=== PATIENT | female | born 1960 | race Caucasian/White ===

== ENCOUNTER 2018-04-21 13:27 | Outpatient (CLI) | payer MEDICARE ==
[2015-11-14 14:57] VITALS: BP 128/72
[2018-04-21 13:54] LABS: MEAN CORPUSCULAR HEMOGLOBIN 24.2 pg (28.0-34.0)
[2018-04-21 13:55] LABS: BASOPHILS % 0.3 (0.0-1.5); EOSINOPHILS % 6.5 % (0.0-6.8); MONOCYTES % 7.4 % (0.0-11.0)
[2018-04-21 15:04] LABS: eGFR (Non-African) > 60
== END 2018-04-21 13:30 ==
LOC: LAB 13:27
PROVIDERS: ATTEND Family Medicine
DX: R25.2 Cramp and spasm (principal)
CPT/HCPCS: 36415; 80053; 83735; 85025

== ENCOUNTER 2018-08-13 08:32 | Emergency (ER) | payer MEDICARE ==
[2018-08-13] MEDS ORDERED: IPRATROPIUM/ALBUTEROL SULFATE 3 ML AMPUL.NEB NEB ONE ×2 (08:38→08:48)
--- NOTE | 2018-08-13 08:47 | ED Physician Documentation ---
General Adult - HISTORIAN Historian: patient - HPI Stated Complaint: dyspnea Chief Complaint: General Adult Onset: hours Timing: still present Severity: moderate Further Comments: yes (Pt is a 58 yo female with hx severe COPD on 5 L NC home O2, who comes to ER with c/o dyspnea. Pt denies chest pain. No n/v/diaphoresis. 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 Pt's says pt needs to be on more than 5 L NC at home, but insurance has not approved that. Pt has been on bipap in the past in the hospital only for previous COPD exacerbations. Pt is a smoker.) - ROS CONST: weakness EYES/ENT: none CVS/RESP: shortness of breath. denies: chest pain GI/: none MS/SKIN/LYMPH: none - PAST HX Past History: COPD (severe on 5 L NC home O2), other (anxiety, depression, musc uloskeletal pain) Allergies/Adverse Reactions: Allergies Allergy/AdvReac Type Severity Reaction Status Date / Time codeine AdvReac Hallucinati Verified 08/13/18 09:13 ons - SOCIAL HX Smoking History: cigarettes - FAMILY HX Family History: No - VITAL SIGNS Vital Signs: Vital Signs Temp Pulse Resp BP Pulse Ox 128/72 11/14/15 14:55 - REVIEWED ASSESSMENTS Nursing Assessment Reviewed: Yes Vitals Reviewed: Yes Progress - Progress Progress: Duoneb HFN Pulmicort HFN Solu-medrol 125 mg IV Influenza A & B - neg Rapid Strep - neg Pt improved, then was up to bathroom and SpO2 decreased to 85% and pt became sob again. Albuterol HFN D/w Dr. Browne. Transfer to [facility], Dr. Lozano. - EKG/XRAY/CT EKG: rhythm (sinus tachycardia, UC=[id number]; normal axis; normal KS interval.) XRAY: chest (no acute process) ED Results Lab/Radiology - Orders Orders: ED Orders Category Date Time Status Ipratropium/Albuterol Sulfate [Duoneb] Med 08/13/18 08:38 Discontinued 3 ml NEB .STK-MED ONE General Adult Physical Exam - PHYSICAL EXAM GENERAL APPEARANCE: moderate distress EENT: pharynx normal NECK: normal inspection, supple RESPIRATORY: wheezes CVS: no murmur, tachycardia ABDOMEN: soft, no organomegaly, normal bowel sounds BACK: normal inspection, no CVA tenderness SKIN: warm/dry, normal color EXTREMITIES: non-tender, normal range of motion, no evidence of injury NEURO: oriented X3, motor nml, sensation nml Discharge Clincal Impression: COPD exacerbation, hyponatremia Referrals: Tova Browne MD [Primary Care Provider] - Condition: Stable Disposition: 02 XFER SHT-TRM HOSP Decision to Admit: NO Decision Time: 11:45
[2018-08-13] MEDS ORDERED: BUDESONIDE 0.5MG/2ML AMPUL.NEB NEB ONE (08:50)
[2018-08-13] MEDS ORDERED: methylPREDNISolone SOD SUCC 125 MG/2 ML VIAL IVP ONE (09:05)
[2018-08-13 09:07] LABS: MEAN CORPUSCULAR HEMOGLOBIN 24.1 pg (28.0-34.0)
[2018-08-13 09:08] LABS: BASOPHILS % 0.6 (0.0-1.5); NEUTROPHILS # 9.6 # k/uL (1.4-7.7)
[2018-08-13] MEDS ORDERED: 0.9 % SODIUM CHLORIDE 500 ML IV ONE ×2 (09:20)
[2018-08-13 09:29] LABS: eGFR (Non-African) > 60
[2018-08-13] MEDS ORDERED: 0.9 % SODIUM CHLORIDE 1,000 ML IV ONE (09:57)
[2018-08-13] MEDS ORDERED: ALBUTEROL SULFATE 2.5 MG/3 ML AMPUL.NEB NEB ONE (10:48)
[2018-08-13 11:28] LABS: APPEARANCE,URINE CLEAR (CLEAR); COLOR,URINE YELLOW (YELLOW)
[2018-08-13 11:29] LABS: OCCULT BLOOD,URINE 2+ (NEGATIVE)
[2018-08-13 12:35] VITALS: BP 147/84
--- NOTE | 2018-08-13 14:09 | Diagnostic Imaging Report ---
ANDREA HERRERA [facility] [address] [facility] [address] [place] [address]. [id number] Report Submission Date: Aug 13, 2018 9:14:47 AM BENDER HELPER Patient Study Name: CHRISTINE SANTIAGO Date: Aug 13, 2018 8:52:01 AM BENDER HELPER Modality Type: DX Gender: F Description: CHEST 1VIEW : 58 Institution: [facility] Physician: ANDREA HERRERA Examination: Portable chest History: Evaluate lungs LOW O2 SATS COPD Comparison exam: None available. Findings: Single view of the chest demonstrates a normal cardiac and mediastinal silhouette. Lung base scarring. Lung ballesteros without focal infiltrate. No blunting of the costophrenic margins. Osseous structures are appropriate for age. Impression: No acute appearing pulmonary process. Electronically signed on Aug 13, 2018 9:14:47 AM BENDER HELPER by: George ALEMAN
== END 2018-08-13 12:25 | disposition short-term general hospital (02) ==
LOC: ED 08:32
DX: J44.1 Chronic obstructive pulmonary disease with (acute) exacerbation (principal); E87.1 Hypo-osmolality and hyponatremia; Z72.0 Tobacco use; Z99.81 Dependence on supplemental oxygen
CPT/HCPCS: 36415; 71045; 80053; 81002; 82550; 82553; 83605; 83880; 84484; 85025; 87040; 87070; 87086; 87400; 87880; 93005; 94640; 96374; 99285; J2930; J7030; J7060; J7626; S1016

== ENCOUNTER 2018-09-01 12:17 | Emergency (ER) | payer MEDICARE ==
[2018-09-01] MEDS ORDERED: IPRATROPIUM/ALBUTEROL SULFATE 3 ML AMPUL.NEB NEB ONE ×2 (12:27→13:33)
--- NOTE | 2018-09-01 12:31 | ED Physician Documentation ---
Dyspnea - HISTORIAN Historian: patient - HPI Stated Complaint: shortness of breath Chief Complaint: Dyspnea Additional Information: Patient, with End stage COPD (wears 6 liters oxygen at home), presents to ER with a several day history of shortness of breath and increased confusion. She was seen here on August 13 for similar symptoms and was sent to [place] where she was hospitalized for COPD exacerbation x 3 days. Patient went home and continued her 1 pack per day smoking habit. Onset: days ago (2) Duration: continues in ED Exacerbated By: nothing Associated Symptoms: chest discomfort, heart racing. denies: chills, fever, productive cough Further Comments: no - ROS CONST: no problems EYES/ENT: none GI/: denies: vomiting, nausea NEURO/PSYCH: denies: headache MS/SKIN/LYMPH: none - PAST HX Lung Disease: COPD Cardiac Disease: CHF PE Risk Factors: none Other History: none Allergies/Adverse Reactions: Allergies Allergy/AdvReac Type Severity Reaction Status Date / Time codeine AdvReac Hallucinati Verified 09/01/18 12:40 ons Home Medications: Ambulatory Orders Medication Instructions Recorded amLODIPine BESYLATE [Norvasc] 2 tab PO DAILY 09/01/18 - SOCIAL HX Smoking History: cigarettes, greater than 1 pack/day Alcohol Use: none Drug Use: none - FAMILY HX Family History: none - VITAL SIGNS Vital Signs: Vital Signs Temp Pulse Resp BP Pulse Ox 147/84 08/13/18 12:33 - REVIEWED ASSESSMENTS Nursing Assessment Reviewed: Yes Vitals Reviewed: Yes Progress - Results/Orders Results/Orders: Report Submission Date: Sep 01, 2018 1:09:55 PM INSTITUTIONAL ASSET MANAGER Patient Study Name: CHRISTINE SANTIAGO Date: Sep 01, 2018 12:47:05 PM INSTITUTIONAL ASSET MANAGER Modality Type: DX Gender: F Description: CHEST 1VIEW : 58 Institution: [facility] Physician: RAAD GONZALES Examination: Portable chest History: Evaluate lungs COPD SMOKER SOB Comparison exam: None available. Findings: Single view of the chest demonstrates a normal cardiac and mediastinal silhouette. Mild haziness at the right lung base. No blunting of the costophrenic margins. Acromioclavicular joint degenerative changes. Impression: Mild right lung base infiltrate. No effusion. Electronically signed on Sep 01, 2018 1:09:55 PM INSTITUTIONAL ASSET MANAGER by: George Bush - Progress Progress: 1320 ABG pH 7.40, pCO2 63, pO2 92 on 10 liters oxygen. Patient needs Bipap or home vent 1345 apparently, in discussion with Oneil', patient has bipap at home but will not use it. 1400 After multiple calls there are no beds available at [facility], or [place]. 1430 Had discussion with patient about admission to [facility], if she wanted to be admitted she would have to change code status. I was met with much agitation. 1500 [facility] have no beds available 1505 [facility] do not have a step down 1508 [facility] No answer. 1511 [facility] [phone] Left message. 1524 [facility] transfer team will accept patient for admission. Discussed with Dr. Horace Melton ED Results Lab/Radiology - Radiology Radiology Impressions: Report Submission Date: Sep 01, 2018 1:09:55 PM INSTITUTIONAL ASSET MANAGER Patient Study Name: CHRISTINE SANTIAGO Date: Sep 01, 2018 12:47:05 PM INSTITUTIONAL ASSET MANAGER Modality Type: DX Gender: F Description: CHEST 1VIEW : 58 Institution: [facility] Physician: RAAD GONZALES Examination: Portable chest History: Evaluate lungs COPD SMOKER SOB Comparison exam: None available. Findings: Single view of the chest demonstrates a normal cardiac and mediastinal silhouette. Mild haziness at the right lung base. No blunting of the costophrenic margins. Acromioclavicular joint degenerative changes. Impression: Mild right lung base infiltrate. No effusion. Electronically signed on Sep 01, 2018 1:09:55 PM INSTITUTIONAL ASSET MANAGER by: George Bush - Orders Orders: ED Orders Category Date Time Status Place IV Lock 1T Care 09/01/18 12:26 Ordered CHEST 1VIEW [RAD] Stat Exams 09/01/18 Ordered ABG WITH COOX Stat Lab 09/01/18 Ordered BNP [NT-proBNP] Stat Lab 09/01/18 Ordered CBC/PLATELET/DIFF Routine Lab 09/01/18 Ordered CMP Routine Lab 09/01/18 Ordered TROPONIN I (cTnI) Stat Lab 09/01/18 Ordered Ipratropium/Albuterol Sulfate [Duoneb] Med 09/01/18 12:27 Once 3 ml NEB NOW ONE EKG WITH COMPARISON Stat Ther 09/01/18 Ordered Dyspnea Physical Exam - EXAM General Appearance: moderate distress EENT: ERNA Neck: nml inspection Respiratory: respiratory distress (in tripod position), accessory muscle use, other (diffuse wheezing bilaterally) CVS: reg. rate & rhythm Abdomen: non-tender Extremities: non-tender, no edema Neuro/Psych: disoriented Discharge Clincal Impression: Medical non-compliance, Smoking addiction Acute on chronic respiratory failure Qualifiers: Respiratory failure complication: hypoxia and hypercapnia Qualified Code(s): J96.21 - Acute and chronic respiratory failure with hypoxia Right lower lobe pneumonia Qualifiers: Pneumonia type: due to other aerobic Gram-negative bacteria Qualified Code(s): J15.6 - Pneumonia due to other Gram-negative bacteria Clincal Impression: (Ruled Out): Acute and chronic respiratory failure with hypercapnia Referrals: Tova Browne MD [Primary Care Provider] - 2 Days Condition: Fair Disposition: 09 ADMITTED INPATIENT Decision to Admit: [id number] Date of Decison to Admit: 09/01/18 Decision Time: 15:30
[2018-09-01 12:33] LABS: BASOPHILS % 0.4 (0.0-1.5); EOSINOPHILS % 1.1 % (0.0-6.8); MEAN CORPUSCULAR HEMOGLOBIN 23.1 pg (28.0-34.0); MONOCYTES % 6.9 % (0.0-11.0); NEUTROPHILS # 8.3 # k/uL (1.4-7.7)
[2018-09-01] MEDS ORDERED: methylPREDNISolone SOD SUCC 125 MG/2 ML VIAL IVP ONE (13:18)
[2018-09-01] MEDS ORDERED: cefTRIAXone SODIUM 1 GM/50 ML INJ IV ONE (13:25)
[2018-09-01] MEDS ORDERED: VANCOMYCIN HCL 1.25 GM in 0.9 % SODIUM CHLORIDE 500 ML IV ONE (13:25)
[2018-09-01 13:27] LABS: eGFR (Non-African) > 60
[2018-09-01 13:36] LABS: ABG BASE EXCESS 11.5 (-2 - +2); ABG PH 7.4 (7.35-7.45)
--- NOTE | 2018-09-01 13:38 | Diagnostic Imaging Report ---
RAAD GONZALES [facility] [address] [facility] [address] [place], [place]. [address] Report Submission Date: Sep 01, 2018 1:09:55 PM FACTORY ASSEMBLER Patient Study Name: CHRISTINE SANTIAGO Date: Sep 01, 2018 12:47:05 PM FACTORY ASSEMBLER Modality Type: DX Gender: F Description: CHEST 1VIEW : 58 Institution: [facility] Physician: RAAD GONZALES Examination: Portable chest History: Evaluate lungs COPD SMOKER SOB Comparison exam: None available. Findings: Single view of the chest demonstrates a normal cardiac and mediastinal silhouette. Mild haziness at the right lung base. No blunting of the costophrenic margins. Acromioclavicular joint degenerative changes. Impression: Mild right lung base infiltrate. No effusion. Electronically signed on Sep 01, 2018 1:09:55 PM FACTORY ASSEMBLER by: George ALEMAN
[2018-09-01] MEDS ORDERED: cefTRIAXone SODIUM 1 GM INJ ONE (15:26)
[2018-09-01] MEDS ORDERED: 0.9 % SODIUM CHLORIDE 50 ML IV ONE (15:26)
[2018-09-01 18:34] VITALS: BP 143/71
== END 2018-09-01 16:54 | disposition other institution (70) ==
LOC: ED 12:17
DX: J96.21 Acute and chronic respiratory failure with hypoxia (principal); J18.1 Lobar pneumonia, unspecified organism; F17.210 Nicotine dependence, cigarettes, uncomplicated; Z91.14 Patient's other noncompliance with medication regimen
CPT/HCPCS: 36415; 36600; 71045; 80053; 82803; 83880; 84484; 85025; 94640; 96365; 96375; 99285; J0696; J2930; J3370; J7060; S1016

== ENCOUNTER 2018-11-24 12:54 | Emergency (ER) | payer MEDICARE, OTHER ==
[2018-11-24] MEDS: IPRATROPIUM/ALBUTEROL SULFATE 3 ML AMPUL.NEB NEB ONE ×2 (13:00→14:21)
[2018-11-24 13:16] LABS: BASOPHILS % 0.5 % (0.0-1.5); EOSINOPHILS % 1.2 % (0.0-6.8); MEAN CORPUSCULAR HEMOGLOBIN 24.2 pg (28.0-34.0); MONOCYTES % 8.2 % (0.0-11.0); NEUTROPHILS # 13.1 # k/uL (1.4-7.7)
[2018-11-24] MEDS: methylPREDNISolone SOD SUCC 125 MG/2 ML VIAL IVP ONE (13:25)
[2018-11-24 13:29] LABS: eGFR (Non-African) > 60
--- NOTE | 2018-11-24 13:30 | ED Physician Documentation ---
Dyspnea - HISTORIAN Historian: child (2 sons and a daughter) - HPI Chief Complaint: Dyspnea Additional Information: Patient is a 58-year-old female who presents to the ER via POV with children. Patient was found by son this afternoon short of breath and lethargic. He states that she was fine yesterday- continues to smoke- will not wear her BiPap- and has been out of nebulizer meds for a couple of days. Upon arrival patient is extremely dyspneic, diaphoretic, and tacycardic. Oxygen sat was 70%. Patient was just discharged from the [place] on 11/18/18. She was admitted on 11/08/18 and intubated. Onset: hours Duration: continues in ED Initiating Event: upper respiratory illness (pt was released from [facility] on 11/18) Severity: severe Exacerbated By: change in position, exertion, laying flat Associated Symptoms: sweating - ROS CONST: [facility] weakness EYES/ENT: none GI/: none NEURO/PSYCH: denies: headache MS/SKIN/LYMPH: none - PAST HX Lung Disease: COPD, other (chronic hypoxic hypercapnic resp. failure) Cardiac Disease: A-Fib PE Risk Factors: hypertension Surgeries/Procedures: prior intubation (11/10/18) Immunizations: UTD Allergies/Adverse Reactions: Allergies Allergy/AdvReac Type Severity Reaction Status Date / Time codeine AdvReac Hallucinati Verified 11/24/18 13:29 ons Home Medications: Ambulatory Orders Medication Instructions Recorded amLODIPine BESYLATE [Norvasc] 2 tab PO DAILY 09/01/18 - SOCIAL HX Smoking History: less than 1 pack/day Alcohol Use: none Drug Use: none - FAMILY HX Family History: none - VITAL SIGNS Vital Signs: Vital Signs Temp Pulse Resp BP Pulse Ox 84 143/71 72 L 11/24/18 13:11 09/01/18 16:54 11/24/18 13:11 - REVIEWED ASSESSMENTS Nursing Assessment Reviewed: Yes Vitals Reviewed: Yes Progress - Progress Progress: 13:45 Patient responding better- family state she looks better- she is able to give short answers now- skin is now dry. Patient down to 2 L NC 14:02 Spoke with Vernon MOLINA at [facility]- report given- will call back for possible acceptance 14:10 Spoke with family and gave an update- pt short of breath due to trying to visit with family- will give another Duoneb treatment- explained to family to let patient conserve resp. status. 14:18 Vernon RN called back patient will go to stepdown at [facility] under Dr. Montilla/ family updated on status 14:35 Patient alert and oriented- talking with family - EKG/XRAY/CT EKG: rhythm (ST rate of 95) ED Results Lab/Radiology - Lab Results Lab Results: Lab Results 11/24/18 13:11 WBC 16.70 K/ul H K/ul (4.00-12.00) RBC 3.77 M/ul L M/ul (3.90-5.20) Hgb 9.1 g/dL L g/dL (11.5-16.0) Hct 28.6 % L % (34.5-46.5) MCV 76.0 fl L fl (80.0-100.0) MCH 24.2 pg L pg (28.0-34.0) MCHC 31.9 g/dL g/dL (30.0-36.0) RDW 17.0 % H % (11.3-14.3) Plt Count 427 K/mm3 H K/mm3 (130-400) Neut % (Auto) 78.5 % % (39.0-79.0) Lymph % (Auto) 11.6 % L % (16.0-50.0) [place] % (Auto) 8.2 % % (0.0-11.0) Eos % (Auto) 1.2 % % (0.0-6.8) Baso % (Auto) 0.5 % % (0.0-1.5) Neut # (Auto) 13.1 # k/uL H # k/uL (1.4-7.7) Lymph # (Auto) 1.9 # k/uL # k/uL (0.6-4.0) [place] # (Auto) 1.4 # k/uL H # k/uL (0.0-0.9) Eos # (Auto) 0.2 # k/uL # k/uL (0.0-0.6) Baso # (Auto) 0.1 # k/uL # k/uL (0.0-0.5) - Orders Orders: ED Orders Category Date Time Status Continuous EKG monitoring Q30M Care 11/24/18 13:11 Ordered Continuous Pulse Oximetry Q30M Care 11/24/18 13:[address] IV Lock 1T Care 11/24/18 13:11 Ordered CHEST 1VIEW [RAD] Stat Exams 11/24/18 Ordered ARTERIAL BLOOD GAS Stat Lab 11/24/18 Uncollected BLOOD CULTURE Stat Lab 11/24/18 Ordered CBC/PLATELET/DIFF Routine Lab 11/24/18 13:11 Ordered CMP Routine Lab 11/24/18 13:11 Ordered LACTATE Stat Lab 11/24/18 Ordered Ipratropium/Albuterol Sulfate [Duoneb] Med 11/24/18 12:59 Discontinued 3 ml NEB NOW ONE methylPREDNISolone SOD SUCC [SOLU-Medrol] Med 11/24/18 13:21 Once 125 mg IVP NOW ONE Oxygen Daily Oxygen 11/24/18 13:15 Ordered EKG WITH COMPARISON Stat Ther 11/24/18 13:11 Ordered Dyspnea Physical Exam - EXAM General Appearance: moderate distress, lethargic EENT: eye inspection normal, ENT inspection normal, dry mucous membranes Neck: nml inspection Respiratory: respiratory distress, decreased air movement, wheezes (end exp wheeze after neb. tx) CVS: tachycardia Abdomen: non-tender Skin: diaphoresis, pallor Extremities: non-tender Neuro/Psych: weakness Discharge Clincal Impression: Acute on chronic respiratory failure, Smoking addiction, Acute exacerbation of chronic obstructive pulmonary disease (COPD), Medical non-compliance Referrals: Tova Browne MD [Primary Care Provider] - 2 Days Additional Instructions: Pt will be transferred to [facility]- daughter requested- pt condition requiring close supervision with ability of Continuous Bipap and Invasive Mechanical Ventilation- spoke with patients PCP and explained reasoning for transfer- she agrees. Patient needs to be monitored by Pulmonology. Disposition: XFER SHT-TRM HOSP Decision to Admit: NO Decision Time: 14:30
[2018-11-24] MEDS ORDERED: BUDESONIDE 0.5MG/2ML AMPUL.NEB NEB ONE (13:34)
[2018-11-24] MEDS: LEVALBUTEROL NEB 1.25 MG/3 ML VIAL.NEB NEB ONE ×2 (13:34→13:38)
[2018-11-24] MEDS: BUDESONIDE 0.5MG/2ML AMPUL.NEB NEB SCH (13:35)
[2018-11-24] MEDS: cefTRIAXone SODIUM 1 GM in 0.9 % SODIUM CHLORIDE 50 ML IV ONE (14:16)
[2018-11-24 14:47] VITALS: BP 128/79
--- NOTE | 2018-11-24 16:14 | Diagnostic Imaging Report ---
BÁRBARA YOUNG ED [facility] [address] [facility] [address] [place], [place]. [address] Report Submission Date: November 24, 2018 3:57:18 PM CDT Patient Study Name: CHRISTINE SANTIAGO Date: November 24, 2018 1:13:54 PM CDT Modality Type: DX Gender: F Description: CHEST 1VIEW : 58 Institution: [facility] Physician: BÁRBARA YOUNG ED Portable chest Severe shortness of breath Portable chest dated November 24, 2018 is compared with August 13 and September 01, 2018. Prominent interstitial markings are present at both lung bases. Based upon prior radiographs, there is a component of bibasilar fibrosis. However, there is increased interstitial abnormality at both lung bases when compared with the prior radiographs, possibly indicating worsening chronic interstitial lung disease/fibrosis but possibly indicating a superimposed acute infectious process. Heart size is within normal limits. Pulmonary vascularity is normal. There is no pleural effusion. Impression: Increasing interstitial markings at both lung bases as described. Electronically signed on November 24, 2018 3:57:18 PM CDT by: Dixie ALEMAN
== END 2018-11-24 14:37 | disposition short-term general hospital (02) ==
LOC: ED 12:54
DX: J96.20 Acute and chronic respiratory failure, unspecified whether with hypoxia or hypercapnia (principal); J44.1 Chronic obstructive pulmonary disease with (acute) exacerbation; F17.210 Nicotine dependence, cigarettes, uncomplicated; Z91.14 Patient's other noncompliance with medication regimen
CPT/HCPCS: 36415; 71045; 80053; 83605; 85025; 85610; 87040; 93005; 94640; 96374; 99285; J0696; J2930; J7614; J7626; S1016